=== PATIENT | female | born 1970 | race Two or more races ===

== ENCOUNTER 2016-10-26 16:02 | Emergency (ER) | payer SELFPAY ==
[~2016-10-26] VITALS: Ht 170.2 cm; Wt 108.9 kg
[2016-10-26 16:10] VITALS: BP 151/91
--- NOTE | 2016-10-26 16:42 | PHYS DOC ---
Past Medical History Past Medical History: No Pertinent History Past Surgical History: Hysterectomy, Knee Replacement Additional Past Surgical Histo: R KNEE, LAPARSCOPIC ABD Alcohol Use: None Drug Use: None Adult General Chief Complaint Chief Complaint: LOWER BACK PAIN OR INJURY HPI HPI Patient is a 45 year old female who presents with mild bilateral low back pain , right knee pain and left wrist pain that began a couple minutes prior to coming to the ED after she fell at the [employer] service [employer]. Patient denies any loss of consciousness. Denies hitting her head on the ground. She states her pain is worse on ambulation. Review of Systems Review of Systems Constitutional: Denies fever or chills [] Eyes: Denies change in visual acuity, redness, or eye pain [] HENT: Denies nasal congestion or sore throat [] Respiratory: Denies cough or shortness of breath [] Cardiovascular: No additional information not addressed in HPI [] GI: Denies abdominal pain, nausea, vomiting, bloody stools or diarrhea [] : Denies dysuria or hematuria [] Musculoskeletal: Bilateral low back pain, left wrist pain, right knee pain Integument: Denies rash or skin lesions [] Neurologic: Denies headache, focal weakness or sensory changes [] Endocrine: Denies polyuria or polydipsia [] Current Medications Current Medications Current Medications Medications (Trade) Dose Ordered Sig/Gurpreet Start Time Stop Time Status Last Admin Dose Admin Ibuprofen (Motrin) 600 mg 1X ONCE 10/26/16 17:00 10/26/16 17:01 DC 10/26/16 16:49 600 MG Allergies Allergies Allergies Coded Allergies Type Severity Reaction Last Updated Verified No Known Drug Allergies 10/26/16 No Physical Exam Physical Exam Constitutional: Well developed, well nourished, no acute distress, non-toxic appearance. [] HENT: Normocephalic, atraumatic, bilateral external ears normal, oropharynx moist, no oral exudates, nose normal. [] Eyes: PERRLA, EOMI, conjunctiva normal, no discharge. [] Neck: Normal range of motion, no tenderness, supple, no stridor. [] Cardiovascular:Heart rate regular rhythm, no murmur [] Lungs & Thorax: Bilateral breath sounds clear to auscultation [] Abdomen: Bowel sounds normal, soft, no tenderness, no masses, no pulsatile masses. [] Skin: Warm, dry, no erythema, no rash. [] Back: Diffuse paraspinal muscle tenderness to bilateral lumbar spine, no midline lumbar spine tenderness, no CVA tenderness. [] Extremities: Right knee with no obvious edema and obvious ecchymosis, old healed surgical incision noted midline and right knee. Tenderness on palpation of the right medial knee. Full range of motion to the right knee including negative Faisal sign and negative Toñito's sign negative anterior-posterior drawer sign. +2 right pedal pulse. Left wrist with no obvious edema and obvious ecchymosis, no scaphoid tenderness and left wrist. Diffuse tenderness on the left wrist. Full range of motion to the left wrist. +2 left radial pulse. Cap refill less than 2 seconds the left fingers. Adequate radial medial and ulnar sensation to the left hand. Neurologic: Alert and oriented X 3, normal motor function, normal sensory function, no focal deficits noted. [] Psychologic: Affect normal, judgement normal, mood normal. [] Current Patient Data Vital Signs Vital Signs Date Time Temp Pulse Resp B/P (MAP) Pulse Ox O2 Delivery O2 Flow Rate FiO2 10/26/16 16:10 97.9 65 20 98 Room Air 97.9 EKG EKG [] Radiology/Procedures Radiology/Procedures []PROCEDURE: KNEE RIGHT 4V Right knee with patella, 4 views, 10/26/2016: History: Pain A total knee prosthesis is in place in satisfactory position. No recent fracture or dislocation is evident. There is a suggestion of a small joint effusion. IMPRESSION: 1. A left total knee prosthesis is in place in satisfactory position. 2. No acute bony abnormality is detected. DICTATED and SIGNED BY: ARIE PASCUAL MD DATE: 10/26/161658 CC: RICHARD LIM APRN; UNKNOWN PCP NAME ~ PROCEDURE: LUMBAR SPINE 2-3V Lumbar spine, 3 views, 10/26/2016: History: Pain The lumbar vertebral heights are well-maintained. The intervertebral disc spaces are well preserved. There are mild scattered marginal spurs. The paraspinous soft tissues are unremarkable. IMPRESSION: 1. Mild marginal spurring. 2. No acute bony abnormality is detected. DICTATED and SIGNED BY: ARIE PASCUAL MD DATE: 10/26/161656 CC: RICHARD LIM APRN; UNKNOWN PCP NAME ~ PROCEDURE: WRIST 3V LEFT Left wrist, 3 views, 10/26/2016: History: Pain No fracture or dislocation is identified. The soft tissues are unremarkable. IMPRESSION: No acute left wrist abnormality is detected. DICTATED and SIGNED BY: ARIE PASCUAL MD DATE: 10/26/16 5830 CC: RICHARD LIM APRN; UNKNOWN PCP NAME ~ Course & Med Decision Making Course & Med Decision Making Pertinent Labs and Imaging studies reviewed. (See chart for details) Patient is in the ED with left wrist pain, right knee pain and low back pain after falling at the [employer]. Left wrist, lumbar spine, and right knee x-rays interpreted by radiologist are negative for any acute findings. Discharged with cyclobenzaprine and diclofenac. Follow-up with orthopedic doctor or PCP in 1-2 weeks. Ice elevation encouraged. Dragon Disclaimer Dragon Disclaimer This electronic medical record was generated, in whole or in part, using a voice recognition dictation system. Departure Departure Impression: Primary Impression: Lumbar contusion Additional Impressions: Fall from standing Left wrist sprain Right knee sprain Disposition: 01 HOME, SELF-CARE Condition: STABLE Referrals: UNKNOWN PCP NAME (PCP) Follow-up with the provided orthopedic doctor in 1-2 weeks LANEY GARCIA II, MD Follow-up in 1-2 weeks Patient Instructions: Back Pain, Adult, Contusion, Joint Sprain Additional Instructions: You were seen for lumbar contusion, right knee sprain and left wrist sprain after falling. Ice and elevate the extremities. Take the prescribed medicines as needed for pain. Follow-up with your doctor the provided doctor in 1-2 weeks. Scripts Cyclobenzaprine Hcl (CYCLOBENZAPRINE HCL) 10 Mg Tablet 1 TAB PO TID, #30 TAB Prov: RICHARD LIM APRN 10/26/16 Diclofenac Sodium (DICLOFENAC SODIUM) 50 Mg Tablet.dr 1 TAB PO BID, #20 TAB 1 Refill Prov: RICHARD LIM APRN 10/26/16 Problem Qualifiers Primary Impression: Lumbar contusion Encounter type: initial encounter Qualified Codes: S30.0XXA - Contusion of lower back and pelvis, initial encounter Additional Impressions: Fall from standing Encounter type: initial encounter Qualified Codes: W19.XXXA - Unspecified fall, initial encounter Left wrist sprain Encounter type: initial encounter Qualified Codes: S63.502A - Unspecified sprain of left wrist, initial encounter Right knee sprain Encounter type: initial encounter Involved ligament of knee: unspecified ligament Qualified Codes: S83.91XA - Sprain of unspecified site of right knee , initial encounter RICHARD LIM [employer] Oct 26, 2016 16:42
[2016-10-26] MEDS ORDERED: IBUPROFEN 600 MG TABLET. PO ONE (17:00)
--- NOTE | 2016-10-26 17:01 | RAD ---
Lumbar spine, 3 views, 10/26/2016: History: Pain The lumbar vertebral heights are well-maintained. The intervertebral disc spaces are well preserved. There are mild scattered marginal spurs. The paraspinous soft tissues are unremarkable. IMPRESSION: 1. Mild marginal spurring. 2. No acute bony abnormality is detected.
--- NOTE | 2016-10-26 17:02 | RAD ---
Left wrist, 3 views, 10/26/2016: History: Pain No fracture or dislocation is identified. The soft tissues are unremarkable. IMPRESSION: No acute left wrist abnormality is detected.
--- NOTE | 2016-10-26 17:03 | RAD ---
Right knee with patella, 4 views, 10/26/2016: History: Pain A total knee prosthesis is in place in satisfactory position. No recent fracture or dislocation is evident. There is a suggestion of a small joint effusion. IMPRESSION: 1. A left total knee prosthesis is in place in satisfactory position. 2. No acute bony abnormality is detected.
[2016-10-26] MEDS ORDERED: CYCL10TA2 PO (17:17)
[2016-10-26] MEDS ORDERED: DICL50TA4 PO (17:17)
== END 2016-10-26 17:21 | disposition home or self-care (01) ==
LOC: ER 16:02
DX: S83.91XA Sprain of unspecified site of right knee, initial encounter (principal); S63.502A Unspecified sprain of left wrist, initial encounter; S30.0XXA Contusion of lower back and pelvis, initial encounter; W19.XXXA Unspecified fall, initial encounter; Y93.89 Activity, other specified; Y99.8 Other external cause status; Y92.89 Other specified places as the place of occurrence of the external cause
CPT/HCPCS: 72100; 73110; 73564; 99284

== ENCOUNTER → 2016-12-04 | Outpatient (CLI) | payer SELFPAY ==
[~2016-12-04] MED LIST: CYCL10TA2 PO; DICL50TA4 PO
--- NOTE | 2016-12-04 12:06 | RAD ---
MRI Lumbar Spine without contrast History: Low back pain for one month, post fall Technique: Multiplanar, multi sequential noncontrast MR imaging was performed of the lumbar spine. Contrast: None Comparison: None Findings: Lumbar vertebral body stature and AP alignment are maintained. There is no significant marrow edema. There is a large cystic focus of the sacrum centered at S2-3 not included on the axial images, up to at least 4.4 cm longitudinal by 2.2 cm AP oblique with some smooth bony erosion of the adjacent sacrum. Lumbar intervertebral disc spaces are relatively preserved, mild disc desiccation L4-5 and L5-S1. Conus terminates at the inferior aspect L2. L2-L3: Spinal canal and neural foramina are adequate. L3-L4: Neural foramina and spinal canal are adequate. L4-L5: There is mild buckling of the ligamentum flavum and minimal facet degenerative change. Spinal canal is adequate. There is minimal disc osteophyte complex more eccentric into the inferior left neural foramen, very minimal narrowing of the inferior left neural foramen. Right neural foramen is adequate. L5-S1: Spinal canal and neural foramina are adequate. Impression: 1. There is no significant lumbar spinal stenosis. There is minimal spondylosis L4-5. 2. Large cystic focus of the sacrum centered at S2-S3 is not fully included, large Tarlov cyst favored although post contrast imaging may be beneficial to ensure no abnormal enhancement. Electronically signed by: Jus Loya MD (12/04/2016 12:02 PM) [id number]
== END | disposition home or self-care (01) ==
LOC: MRI 10:25
PROVIDERS: ATTEND Nurse Practitioner Gerontology
DX: M54.16 Radiculopathy, lumbar region (principal); M47.896 Other spondylosis, lumbar region; W19.XXXD Unspecified fall, subsequent encounter
CPT/HCPCS: 72148